=== PATIENT | female | born 1965 | race Caucasian/White ===

== ENCOUNTER 2019-01-13 16:09 | Inpatient (IN) | payer OTHER ==
[~2019-01-13] VITALS: Ht 162.6 cm; Wt 95.3 kg
[2019-01-17] MEDS ORDERED: LEVAQUIN750 MG PO (10:02)
[2019-01-17] MEDS ORDERED: FLUCONAZOLE100 MG PO (10:02)
== END 2019-01-17 11:37 | disposition home or self-care (01) | DRG 153 ==
LOC: ER 16:09 → SEC-K 01-14 18:47 → MEDI 01-14 18:47
PROVIDERS: ADMIT Internal Medicine
DX: J35.01 Chronic tonsillitis (principal); D72.828 Other elevated white blood cell count; R22.1 Localized swelling, mass and lump, neck

== ENCOUNTER 2019-10-06 22:29 | Emergency (ER) | payer OTHER ==
[~2019-10-06] VITALS: Ht 165.1 cm; Wt 91.2 kg
[~2019-10-06 22:29] MED LIST: FLUCONAZOLE100 MG PO; LEVAQUIN750 MG PO
[2019-10-06] MEDS ORDERED: LOTRISONE CREAM45 GM TOP (22:47)
[2019-10-06] MEDS ORDERED: TERBINAFINE HC250 MG PO (22:47)
== END 2019-10-06 22:51 | disposition home or self-care (01) ==
LOC: ER 22:29
DX: B36.8 Other specified superficial mycoses (principal)